=== PATIENT | female | born 1985 | race Caucasian/White ===

== ENCOUNTER 2019-02-20 18:39 | Emergency (ER) | payer BC ==
[2019-02-20 19:32] VITALS: BP 104/60; PULSE 84; TEMP 97.7; BMI 29.7
[2019-02-20 20:33] LABS: PH,URINE 6.5 (5.0-8.0); URINE APPEARANCE CLEAR; URINE BILIRUBIN NEGATIVE (NEGATIVE); URINE COLOR YELLOW; URINE GLUCOSE (UA) NEGATIVE (NEGATIVE); URINE KETONE NEGATIVE (NEGATIVE); URINE LEUK ESTERASE NEGATIVE (NEGATIVE); URINE NITRITE NEGATIVE (NEGATIVE); URINE PROTEIN NEGATIVE (NEGATIVE); URINE UROBILINOGEN 0.2 mg/dL (0.2-1.0)
[2019-02-20] MEDS ORDERED: ACETAMINOPHEN 325 MG TABLET (FP) PO ONE (20:48)
[2019-02-20] MEDS ORDERED: ACETAMINOPHEN 325 MG TABLET (FP) ONE (20:51)
--- NOTE | 2019-02-20 20:56 | PDOC ---
History of Present Illness - General Chief Complaint: Blood Pressure Problem Stated Complaint: HIGH BLOOD PRESSURE Time Seen by Provider: 02/20/19 20:27 History Source: Patient, Family Exam Limitations: No Limitations - History of Present Illness Initial Comments: 33 y/o F, at 16 week , with no significant pmh, presents today to the ED c/o of headaches and a concern for elevated BP measured at home to be 127 /114. As per pt, she felt the headaches and decided to measure her BP which to her appeared elevated. She has not had any elevated BPs in the past or current . Her most recent [employer] power [employer] visit 2 weeks ago was normal. 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 Family appeared apprehensive about the BP but otherwise has no other concern. Pt does report n/v 2-3 episodes during the current . Denies f/c/d/chest pain, shortness of breath, vaginal discharge, vaginal bleeding, pelvic pain. 02/20/19 21:14 Associated Symptoms: reports: denies symptoms, nausea/vomiting. denies: chest pain, cough, diaphoresis, fever/chills, headaches, loss of appetite, rash, seizure, shortness of breath (1-2 episodes during the ) Past History - Travel Traveled outside of the country in the last 30 days: No Close contact w/someone who was outside of country & ill: No - Past Medical History Allergies/Adverse Reactions: Allergies Allergy/AdvReac Type Severity Reaction Status Date / Time No Known Allergies Allergy Verified 02/20/19 19:32 Anemia: No Asthma: No Cancer: No Cardiac Disorders: No Hx Myocardial Infarction: No COPD: No Diabetes: No Hypercholesterolemia: No Seizures: No Thyroid Disease: No - Surgical History Abdominal Surgery: No Appendectomy: No - Reproductive History (#): 2 Para: 3 Cervical CA: No Dysfunctional Uterine Bleeding: No Ovarian CA: No PID: No Polycystic Ovaries: No Tubal Ligation: No Uterine Fibroids: No - Psycho Social/Smoking Cessation Hx Smoking History: Never smoked Have you smoked in the past 12 months: No Information on smoking cessation initiated: No Hx Alcohol Use: No Drug/Substance Use Hx: No Review of Systems - Review of Systems Able to Perform ROS?: Yes Is the patient limited Albanian proficient: No Constitutional: Yes: Symptoms Reported, Weight Stable. No: Chills, Diaphoresis , Fever HEENTM: Yes: Symptoms Reported. No: Blurred Vision, Tearing, Difficulty Swallowing Respiratory: Yes: Symptoms reported. No: Cough, Shortness of Breath, SOB with Exertion, Wheezing Cardiac (ROS): Yes: Symptoms Reported. No: Chest Pain, Chest Tightness ABD/GI: Yes: Symptoms Reported, Nausea, Vomiting. No: Diarrhea : Yes: Symptoms Reported Musculoskeletal: Yes: Symptoms Reported Integumentary: Yes: Symptoms Reported. No: Change in Color Neurological: Yes: Symptoms reported, Headache (one episode lasting 2 hours) All Other Systems: Reviewed and Negative *Physical Exam - Vital Signs Last Vital Signs Temp Pulse Resp BP Pulse Ox 97.7 F 84 17 104/60 100 02/20/19 19:29 02/20/19 19:29 02/20/19 19:29 02/20/19 19:29 02/20/19 19:29 - Physical Exam General Appearance: Yes: Nourished, Appropriately Dressed, Apparent Distress HEENT: positive: EOMI, MECHE, Normal ENT Inspection, Pharynx Normal Neck: positive: Trachea midline, Normal Thyroid, Supple Respiratory/Chest: positive: Lungs Clear, Normal Breath Sounds Cardiovascular: positive: Regular Rhythm, Regular Rate, S1, S2. 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, Fully Oriented, Alert, Normal Mood/ Affect ED Treatment Course - ADDITIONAL ORDERS Additional order review: Laboratory Results 02/20/19 20:23 Urine Color Yellow Urine Appearance Clear Urine pH 6.5 Ur Specific [place] 1.020 Urine Protein Negative Urine Glucose (UA) Negative Urine Ketones Negative Urine Blood Negative Urine Nitrite Negative Urine Bilirubin Negative Urine Urobilinogen 0.2 Ur Leukocyte Esterase Negative Medical Decision Making - Medical Decision Making 33 y/o F, at 16 week , with no significant pmh, presents today to the ED c/o of headaches and a concern for elevated BP measured at home to be 127 /114 #Headaches pt concerned about elevated BP educated pt that BP is normal r/p BP in the ED is within normal range no clinical signs of risks to no vaginal bleeds/discharges, no pelvic pains Tylenol given for headaches EKG: NSR, sinus arrhythmia UA negative no need for any further blood work As per pt recent blood work at [facility] was normal Educated pt about blood pressures during advised pt to f/u with her scheduled visit to [facility] on Thursday02/20/19 21:19 Discharge - Discharge Information Problems reviewed: Yes Clinical Impression/Diagnosis: Headache in Qualifiers: Trimester: first trimester Qualified Code(s): O26.891 - Other specified related conditions, first trimester Condition: Good Disposition: HOME - Admission No - Follow up/Referral - Patient Discharge Instructions Patient Printed Discharge Instructions: DI for High Blood Pressure, How to Monitor Your Blood Pressure at Home Additional Instructions: You came to the Emergency room for concern with your blood pressure and headaches. While you were in the emergency room, we evaluated you with a urinalysis, EKG and repeated your blood pressure, which were all normal. We found that your blood pressure was within normal limits and there was no immediate concern with the . We gave you Tylenol for your headaches and your symptoms improved. Please follow up with your [facility] Dr. Arguello on Thursday as scheduled Please follow up with your primary care physician in 1 week Return to the emergency room, if you experience any worsening of your symptoms, vaginal bleeds, abdominal pain, fevers, chills, or worsening of any condition. - Post Discharge Activity
--- NOTE | 2019-02-20 21:12 | PDOC ---
Documentation entered by Bahman Newby SCRIBE, acting as scribe for Gabi Jimenez MD. Gabi Jimenez MD: This documentation has been prepared by the idaniaeOdin Daniel, SCRIBE, under my direction and personally reviewed by me in its entirety. I confirm that the documentation accurately reflects all work, treatment, procedures, and medical decision making performed by me. Attending Attestation - Resident Resident Name: Bryan Jimenez - ED Attending Attestation I have performed the following: I have examined & evaluated the patient, The case was reviewed & discussed with the resident, I agree w/resident's findings & plan, Exceptions are as noted - HPI HPI: 02/20/19 20:47 The patient is a 33 year old female with no past medical history here today for evaluation of hypertension. The patient reports that she is 16 weeks and developed a headache while at home today and did not take anything to alleviate it. She states that she checked her blood pressure at home and that it was 120/112 and became concerned so she came to the ER. Patient denies headache, lightheadedness. Denies fever, chills. Denies chest pain, shortness of breath. Denies nausea, vomiting, diarrhea, abdominal pain. Allergies: NKA - Physicial Exam PE: 02/20/19 20:47 GENERAL: Well-appearing, well-nourished. No apparent distress. HEENT: Normocephalic, atraumatic. PERRL, EOM intact. CARDIOVASCULAR: Normal S1, S2. Regular rate and rhythm. PULMONARY: Clear to auscultation bilaterally. ABDOMEN: Soft, non-distended, non-tender. EXTREMITIES: Normal ROM in all four extremities. No gross deformities. SKIN: Warm, dry. No rash NEUROLOGICAL: No focal neurological deficits. - Medical Decision Making 02/20/19 21:04 33-year-old female had mild headache at home but did not take any over-the- counter medicines for it. She took her blood pressure at home and she said it was 127/112 and so she came to the emergency department with concern of high blood pressure She does not have any focal neuro deficits,no visual changes 02/20/19 21:11 02/21/19 01:51 She reports that she is at 16 weeks and has care. She has no pelvic bleeding or cramping She has no focal neuro deficits Blood pressure upon arrival was 104/60 with a pulse of 84 EKG is normal sinus rhythm with no signs of ischemia Patient discharged home
--- NOTE | 2019-02-21 13:32 | EKG ---
Test Reason : Blood Pressure : / mmHG Vent. Rate : 063 BPM Atrial Rate : 063 BPM P-R Int : 166 ms QRS Dur : 084 ms QT Int : 418 ms P-R-T Axes : 045 030 019 degrees QTc Int : 427 ms NORMAL SINUS RHYTHM WITH SINUS ARRHYTHMIA NORMAL ECG NO PREVIOUS ECGS AVAILABLE Confirmed by CHEO JENKINS MD ([id number]) on 02/21/2019 1:32:19 PM Referred By: Confirmed By:CHEO JENKINS MD
== END 2019-02-20 21:12 | disposition home or self-care (01) ==
LOC: JER 18:39
DX: O26.892 Other specified pregnancy related conditions, second trimester (principal); R51 Headache; Z3A.16 16 weeks gestation of pregnancy
CPT/HCPCS: 81003; 87086; 93005; 93010; 99283-25